=== PATIENT | male | born 1950 | race Caucasian/White ===

== ENCOUNTER → 2017-01-31 | Outpatient (CLI) | payer MEDICARE, BC ==
[~2017-01-31] MED LIST: AMITRYPTYLINE PO; AUGMENTIN PO; COLACE PO; DOXYCYCLINE PO; IBUPROFEN PO; LOPRESSOR PO; TYLOX 5/500 CAP1 CAP PO; VICODIN PO; ZESTORETIC 20/21 TAB PO
--- NOTE | ~2017-01-31 | CT3 ---
[facility] A Service of [facility] & [facility] RADIOLOGY TEXT RESULTS PATIENT: SANGEETA SONI LOCATION: [facility] : 46 UNIT #: [id number] AGE: [address]: Shankar Garsia MD SEX: M ORDER DR: [id number] [facility]. [place], [place] [address] [id number] O MR#: [id number] Acc #: [id number] NAME: SANGEETA SONI : 1950 SEX: M STUDY DATE/TIME: 01/31/2017 16:23 UNIT: [facility] ROOM: STUDY DESCRIPTION: CT Abd and Pelv WWo Cont Attending Physician: Shankar Garsia M.D. Referring Physician: Shankar Garsia M.D. Ordering Physician: Shankar Garsia M.D. Primary Care Physician: Denilson Ramirez M.D. MEDICAL IMAGING REPORT This report is preliminary unless electronic signature is present EXAM CT abdomen and pelvis without and with contrast (renal mass protocol) 01/31/2017 HISTORY 66-year-old male with history of renal cancer, 1-year followup. No current complaints. Observation for metastatic disease. Restaging. COMPARISON CT abdomen and pelvis without and with contrast 01/16/2016. TECHNIQUE Precontrast and dynamic postcontrast imaging was obtained of the abdomen, and single postcontrast phase imaging was extended through the pelvis. Enteric contrast not administered. Sagittal and coronal reformatted images were obtained. This CT exam was performed with one or more of the following radiation dose reduction techniques: automatic exposure control, adjustment of mA and/or kV according to patient size, and iterative reconstruction. FINDINGS ABDOMEN: Left nephrectomy changes. No soft tissue mass or disease recurrence in the nephrectomy bed. On precontrast imaging, no right renal or ureteral stone is identified. On postcontrast imaging, no suspicious enhancing right renal mass is seen. A tiny cyst at the right lower renal pole measures only 6 mm. No pathologic adenopathy is seen. No free fluid is evident. On delayed excretory phase imaging, no suspicious filling defects are seen STS. [facility] A Service of [facility] RADIOLOGY TEXT RESULTS PATIENT: SANGEETA SONI LOCATION: [facility] : 48 UNIT #: [id number] AGE: [address]: Shankar Garsia MD SEX: M ORDER DR: within the right renal collecting system, ureter, nor within the urinary bladder. Imaged lung bases appear free of acute airspace disease. There may be minimal scarring or atelectasis in the lingula. There is mild cardiac enlargement, and a pacemaker device is in place. The liver is mildly steatotic. Multiple gallstones are present. No abnormal biliary dilation is seen. Spleen, pancreas, right adrenal gland are normal. Left adrenal gland not visualized and may be surgically absent. Appendix is normal. Diverticular changes are seen within the descending and sigmoid colon. Moderate calcific atherosclerosis is seen within the abdominal aorta. PELVIS: There is mild long-segment thickening of the mid-sigmoid colon where diverticular changes are present. This may simply represent muscular hypertrophy related to longstanding diverticular disease, although mild acute diverticulitis could have a similar CT appearance. The urinary bladder is normal. Prostate gland is not enlarged. Rectum is within normal limits. There is a small left inguinal hernia containing only fat. No pathologic adenopathy or free fluid is identified. L5 laminectomy changes are present with lower lumbar degenerative changes. No suspicious osseous lesions. IMPRESSION 1. No evidence of metastatic disease or disease recurrence in this patient with a history of renal cancer. 2. Left nephrectomy and presumed left adrenalectomy. 3. Subcentimeter right renal cyst. 4. Hepatic steatosis. 5. Colonic diverticulosis. Mild long-segment thickening of the sigmoid colon is present which may simply reflect changes related to longstanding diverticular disease, although mild acute diverticulitis could have a similar imaging appearance. This should be clinically correlated. 6. Presumed L5 laminectomy. 7. Cholelithiasis. Dictated by... Kourtney Reddy M.D. THIS IS AN ELECTRONICALLY VERIFIED REPORT Kourtney Reddy M.D. at 02/03/2017 7:33 AM LLH/pcl [facility] A Service of [facility] RADIOLOGY TEXT RESULTS PATIENT: SANGEETA SONI LOCATION: [facility] : 48 UNIT #: [id number] AGE: [address]: Shankar Garsia MD SEX: M ORDER DR: TD: 02/01/2017 18:22 JOB #: [id number] MEDICAL IMAGING REPORT Page 1 of 1 COPY
--- NOTE | ~2017-01-31 | CR63 ---
[facility] A Service of [facility] RADIOLOGY TEXT RESULTS PATIENT: SANGEETA SONI LOCATION: [facility] : 48 UNIT #: [id number] AGE: [address]: Shankar Garsia MD SEX: M ORDER DR: [id number] [facility]. [place], [place] [address] [id number] O MR#: [id number] Acc #: [id number] NAME: SANGEETA SONI : 1950 SEX: M STUDY DATE/TIME: 01/31/2017 15:29 UNIT: [facility] ROOM: STUDY DESCRIPTION: CR Chest 2 View Attending Physician: Shankar Garsia M.D. Referring Physician: Shankar Garsia M.D. Ordering Physician: Shankar Garsia M.D. Primary Care Physician: Denilson Ramirez M.D. MEDICAL IMAGING REPORT This report is preliminary unless electronic signature is present EXAM Chest 01/31/2017 HISTORY 66-year-old male patient, history of renal cell carcinoma. Short of air, acute onset. Renal cancer 8 years prior. COMPARISON Chest 01/16/2016 FINDINGS PA and lateral chest views show stable cardiomegaly. Permanent pacemaker is positioned on the left with dual pacing leads well located. Hilar structures are preserved. Bilateral lungs are expanded and clear, with no infiltrate and no interval occurring pulmonary nodule. Costophrenic angles are preserved. IMPRESSION Stable chest with stable cardiac enlargement. Dual pacing leads remain well positioned. No acute finding and no evidence for metastatic disease. Dictated by... Franko Real M.D. THIS IS AN ELECTRONICALLY VERIFIED REPORT Franko Real M.D. at 02/01/2017 8:09 AM ABDIAS/zora TD: 02/01/2017 00:05 JOB #: [id number] MEDICAL IMAGING REPORT [facility] A Service of [facility] RADIOLOGY TEXT RESULTS PATIENT: SNAGEETA SONI [facility] UNIT #: [id number] AGE: [address]: Shankar Garsia MD SEX: M ORDER DR: Page 1 of 1 COPY
[2017-01-31 15:25] LABS: HEMATOCRIT 45.3 % (38.0-50.0); HEMOGLOBIN 15.6 gm/dL (13.0-16.0); MEAN CELL VOLUME 93.1 FL (83-96); MEAN CORPUSCULAR HEMOGLOBIN 32.1 PG (28-34); MEAN CORPUSCULAR HGB CONC 34.5 g/dL (30-36); MEAN PLATELET VOLUME 7.6 FL (6.5-11.5); RED BLOOD COUNT 4.87 X10e (3.90-5.60); RED CELL DISTRIBUTION WIDTH 13.3 % (11.0-15.5)
[2017-01-31 15:45] LABS: ALBUMIN SERUM 4.2 g/dL (3.5-5.0); BILIRUBIN,TOTAL 0.9 mg/dL (0.2-2.0); BUN/CREATININE RATIO 15.83; CALCIUM SERUM 9.1 mg/dL (8.4-10.2); CREATININE SERUM 1.2 mg/dL (0.6-1.4); GLOM FILT RATE Estimated 61.8 mL/min (>60); POTASSIUM 4.4 mmol/L (3.5-5.1); PROTEIN TOTAL SERUM 7.9 g/dL (6.0-8.3)
== END | disposition home or self-care (01) ==
LOC: CCAT 14:37
PROVIDERS: Urology
DX: Z08 Encounter for follow-up examination after completed treatment for malignant neoplasm (principal); Q61.02 Congenital multiple renal cysts; K76.0 Fatty (change of) liver, not elsewhere classified; K57.30 Diverticulosis of large intestine without perforation or abscess without bleeding; K63.89 Other specified diseases of intestine; K80.20 Calculus of gallbladder without cholecystitis without obstruction; Z90.5 Acquired absence of kidney; Z85.528 Personal history of other malignant neoplasm of kidney
CPT/HCPCS: 36415; 71020; 74178; 80053; 85027; Q9967